=== PATIENT | male | born 1945 | race Caucasian/White ===

== ENCOUNTER 2016-11-14 17:54 | Inpatient (IN) ==
[2016-11-14] MEDS ORDERED: Lidocaine 2% Syringe 100 MG/5 ML IVP ONE (19:20)
[2016-11-14] MEDS ORDERED: Aspirin 81 MG TAB.CHEW PO STA (19:27)
[2016-11-14] MEDS ORDERED: *HR* Heparin 5,000 UNIT/ML VIAL IVP ONE (19:27)
[2016-11-14] MEDS ORDERED: 0.9 % Sodium Chloride 1,000 ML IV SCH (19:30)
[2016-11-14] MEDS ORDERED: Lidocaine Drip 2 GM/500 ML IV.SOLN IVC SCH (19:30)
[2016-11-14] MEDS ORDERED: Heparin 25,000 UNIT/500 ML D5W 25,000 UNIT/500 ML MLS IVC SCH (19:30)
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
[2016-11-14 19:35] LABS: Basophils % 0.3 %; Eosinophils % 0.4 %; Hematocrit 39.5 % (37.5-50.1); Hemoglobin 13.3 g/dL (12.9-16.9); Immature Granulocytes % 0.6 % (0-4); Lymphocytes # 1.1 K/mcL (0.6-4.6); Lymphocytes % 11.2 %; Mean Corpuscular HGB Conc 33.7 g/dL (31.6-35.5); Mean Corpuscular Hemoglobin 30.6 pg (28.0-33.3); Mean Platelet Volume 9.7 fL (9.4-12.4); Monocytes # 0.7 K/mcL (0.0-1.3); Monocytes % 6.8 %; Neutrophils # 7.9 K/mcL (1.6-8.9); Platelet Count 246 K/mcL (140-400); Red Blood Count 4.34 M/mcL (4.19-5.50); Segmented Neutrophils % 80.7 %
[2016-11-14 19:50] LABS: BUN/Creatinine Ratio 25 (6-26); Blood Urea Nitrogen 28 mg/dL (8-26); Calcium 8.6 mg/dL (8.6-10.8); Carbon Dioxide 23 mEq/L (19-29); Chloride 99 mEq/L (98-109); Glucose 107 mg/dL (70-99); Osmolality,Calculated 276 (280-300); Potassium 4.1 mEq/L (3.5-4.5); Sodium 130 mEq/L (136-145); eGFR For African Americans > 60 (> 60); eGFR For Non-African Americans > 60 (> 60)
[2016-11-14 19:53] LABS: Acetaminophen < 1.0 mcg/mL (10-30); Ethanol < 10 mg/dL (0-10); Salicylate < 5.0 mg/dL (15-30)
[2016-11-14] MEDS ORDERED: *HR* Heparin 10,000 UNIT/10 ML VIAL ONE (19:54)
[2016-11-14] MEDS ORDERED: Nitroglycerin 1,000 MCG/10 ML VIAL IV ONE (19:54)
[2016-11-14] MEDS ORDERED: Heparin 1,000 UNITS/500 mL NS 500 ML ONE (19:54)
[2016-11-14] MEDS ORDERED: 0.9 % Sodium Chloride 1,000 ML ONE ×2 (19:54→20:04)
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
--- NOTE | 2016-11-14 20:13 | Pre-Sedation Evaluation ---
Pre-sedation evaluation - Pre-sedation checklist Date of procedure: 11/14/16 Procedure: Cardiac catheterization Recent Vitals: Last Vital Signs Temp 97.7 F 11/14/16 17:55 Pulse 78 11/14/16 19:55 Resp 18 11/14/16 20:05 BP 118/73 11/14/16 20:05 Pulse Ox 98 11/14/16 19:55 H&P (including ROS) documented in medical record: Yes Previous reaction to sedatives/anesthetics: No Dietary Status: unknown Airway Assessment: Patient can open mouth completely, TMJ function normal Dentition: No loose teeth or bridges Possible difficult airway: No ASA Classification *see protocol: CLASS II-Mild systemic disease Plan of Care: Pt appropriate candidate for procedure/moderate/conscious sedation
[2016-11-14 20:18] LABS: Activated Partial Thrombo Time 28.7 Seconds (26.0-36.0); INR 1.3; Prothrombin Time 13.6 Seconds (9.4-12.1)
[2016-11-14] MEDS ORDERED: *HR* Midazolam HCl 2 MG/2 ML VIAL ONE (20:18)
[2016-11-14] MEDS ORDERED: *HR* FentaNYL (PF) 100 MCG/2 ML VIAL ONE (20:19)
--- NOTE | 2016-11-14 20:29 | Emergency Department Note ---
Disposition Clinical Impression: V tach Syncope Qualifiers: Syncope type: unspecified Qualified Code(s): R55 - Syncope and collapse Disposition: Admitted As Inpatient Condition: Serious General Adult HPI - General Chief complaint: ED Syncope Stated complaint: blacked out 2 days ago Time Seen by Provider: 11/14/16 18:09 Source: patient Mode of arrival: ambulatory Limitations: no limitations - History of Present Illness Pain Scale: 0 - Related Data Allergies Allergy/AdvReac Type Severity Reaction Status Date / Time No Known Allergies Allergy Verified 11/14/16 17:55 Constitutional: Denies: fever, chills Cardiovascular: Reports: palpitations. Denies: chest pain Respiratory: Reports: dyspnea Gastrointestinal: Reports: abdominal pain (Occasional abdominal pain). Denies: nausea, vomiting Genitourinary: Denies: dysuria Musculoskeletal: Denies: neck pain Past Medical History - Past Medical History Medical history: Reports: coronary artery disease, hyperlipidemia, hypertension , myocardial infarction, seizures Psychiatric history: Reports: no psych history - Social History Smoking Status: Current every day smoker Smokeless Tobacco Status: No Alcohol use: Reports: none Drug use: Reports: none Physical Exam - General Limitations: no limitations General appearance: alert, in no apparent distress Course Vital Signs Temperature 97.7 F 11/14/16 17:55 Pulse Rate 136 11/14/16 17:55 Respiratory Rate 20 11/14/16 17:55 Blood Pressure 114/75 11/14/16 17:55 O2 Sat by Pulse Oximetry 95 11/14/16 17:55 Temperature 97.7 F 11/14/16 17:55 Pulse Rate 78 11/14/16 19:55 Respiratory Rate 18 11/14/16 20:05 Blood Pressure 118/73 11/14/16 20:05 O2 Sat by Pulse Oximetry 98 11/14/16 19:55 Oxygen Delivery Oxygen Delivery Nasal Cannula Medical Decision Making - Lab Data Result diagrams: 11/14/16 19:24 11/14/16 19:24 Lab Results 11/14/16 11/14/16 11/14/16 Range/Units 19:24 19:24 19:24 WBC 9.8 (4.3-11.1) K/mcL RBC 4.34 (4.19-5.50) M/mcL Hgb 13.3 (12.9-16.9) g/dL Hct 39.5 (37.5-50.1) % MCV 91.0 (83.0-100.0) fL MCH 30.6 (28.0-33.3) pg MCHC 33.7 (31.6-35.5) g/dL RDW 13.0 (11.5-14.5) % Plt Count 246 (140-400) K/mcL MPV 9.7 (9.4-12.4) fL Immature Gran % 0.6 (0-4) % Seg Neutrophils % 80.7 % Lymphocytes % 11.2 % Monocytes % 6.8 % Eosinophils % 0.4 % Basophils % 0.3 % Neutrophils # 7.9 (1.6-8.9) K/mcL Lymphocytes # 1.1 (0.6-4.6) K/mcL Monocytes # 0.7 (0.0-1.3) K/mcL Eosinophils # 0.0 (0.0-0.6) K/mcL Basophils # 0.0 (0.0-0.2) K/mcL PT (9.4-12.1) Seconds INR APTT (26.0-36.0) Seconds Sodium 130 L (136-145) mEq/L Potassium 4.1 (3.5-4.5) mEq/L Chloride 99 (98-109) mEq/L Carbon Dioxide 23 (19-29) mEq/L BUN 28 H (8-26) mg/dL Creatinine 1.13 (0.72-1.25) mg/dL Est GFR ( Amer) > 60 (> 60) Est GFR (Non-Af Amer) > 60 (> 60) BUN/Creatinine Ratio 25 (6-26) Glucose 107 H (70-99) mg/dL Calculated Osmolality 276 L (280-300) Calcium 8.6 (8.6-10.8) mg/dL Troponin I 0.01 (0-0.03) ng/mL Salicylates (15-30) mg/dL Acetaminophen (10-30) mcg/mL Ethyl Alcohol (0-10) mg/dL 11/14/16 11/14/16 Range/Units 19:24 19:24 WBC (4.3-11.1) K/mcL RBC (4.19-5.50) M/mcL Hgb (12.9-16.9) g/dL Hct (37.5-50.1) % MCV (83.0-100.0) fL MCH (28.0-33.3) pg MCHC (31.6-35.5) g/dL RDW (11.5-14.5) % Plt Count (140-400) K/mcL MPV (9.4-12.4) fL Immature Gran % (0-4) % Seg Neutrophils % % Lymphocytes % % Monocytes % % Eosinophils % % Basophils % % Neutrophils # (1.6-8.9) K/mcL Lymphocytes # (0.6-4.6) K/mcL Monocytes # (0.0-1.3) K/mcL Eosinophils # (0.0-0.6) K/mcL Basophils # (0.0-0.2) K/mcL PT 13.6 H (9.4-12.1) Seconds INR 1.3 APTT 28.7 (26.0-36.0) Seconds Sodium (136-145) mEq/L Potassium (3.5-4.5) mEq/L Chloride (98-109) mEq/L Carbon Dioxide (19-29) mEq/L BUN (8-26) mg/dL Creatinine (0.72-1.25) mg/dL Est GFR ( Amer) (> 60) Est GFR (Non-Af Amer) (> 60) BUN/Creatinine Ratio (6-26) Glucose (70-99) mg/dL Calculated Osmolality (280-300) Calcium (8.6-10.8) mg/dL Troponin I (0-0.03) ng/mL Salicylates < 5.0 L (15-30) mg/dL Acetaminophen < 1.0 L (10-30) mcg/mL Ethyl Alcohol < 10 (0-10) mg/dL - EKG Data EKG #1 EKG results narrative: Social EKG was obtained [address] segment changes in leads 23 and aVF with possible J-point elevation however ST segments were not elevated there was also nonspecific changes in V leads with poor R-wave progression. [place] was left intervals were normal ventricular rate was 77 bpm second EKG was obtained at 1903 with findings of patient distress including blacking out EKG findings showed ventricular tachycardia on lead 2. There was K Corton's in V1 and V3 V4 V5 and V6 however this is absent in lead V2. Findings consistent with ventricular tachycardia. Their EKG completed at 191 with spontaneous resolution of ventricular tachycardia after lidocaine administration showed again an EKG changes in II, III, and F aVF with J-point elevation however again nonspecific ST segment changes with left axis and nonspecific changes in the anterior V leads. Final EKG completed at 1915 showed ventricular rate at 83 bpm with again nonspecific EKG changes in II, III , and F aVF with possible J-point elevation however no substantial changes in ST segments or several changes. EKGs were abnormal. nail specialist as well as noninterventional channel worker notified. Lab will be in for emergent ischemic evaluation. Critical Care Time Total Critical Care Time: 35 Attestation: Greater than 35 minutes of critical care time was spent resuscitating this acutely ill male suffering from ventricular tachycardia. Critical care time was excluding billable procedures Attestation Statement - Attestation Attestation: 71-year-old male with a history of CABG, previous coronary artery disease who is otherwise healthy who was working today and had 2 episodes of syncope. He had no chest pain. He has had intermittent epigastric discomfort. He has reportedly had previous abdominal ultrasounds. Today in the emergency department presents without focal neurological deficit however did have episode of syncopal while here in the department. This is associated with significant EKG changes including ventricular tachycardia and hypotension. His blood pressure responded to IV fluids and given findings of ventricular tachycardia I did proceed with IV bolus of lidocaine 100 mg. This was done in effort to preserve possible future EP study. Cardiac biomarkers are not available at this time for evaluation. Electrolytes are pending. He has no chest pain and had complete resolution of syncope with of ventricular tachycardia. He was started on a lidocaine drip. He had no subsequent ectopy. I did emergently contact the noninterventional cardiologists for EKG clarification given the nonspecific EKG changes in II, III, and F aVF. He did not have overt STEMI. He was given heparin, aspirin. I did discuss the case with the on-call interventionalists who agreed that emergent ischemic evaluation was warranted given ongoing ventricular tachycardia. The patient was taken emergently to the catheter lab. He remained stable with no further ectopy.
--- NOTE | 2016-11-14 21:17 | Invasive Diagnostic Lab Proc ---
Name: Dre Smith Date of Study: 11/14/2016 Date: 1945 Ht: 68.9in Medical Record#: [id number] Age: 71 Wt: 174.17lb Gender: Male BSA: 1.95 Order #: [id number] BMI: 25.8 Physicians Procedure Physician: Carlitos Paulino MD Referring MD: Referring MD: Staff Name Position Time In Sites, Caitlin RT (R) Monitor 08:16 PM Caitlin Keller RT (R) Scrub 08:16 PM Odessa Segura RN Counterperson 08:16 PM Oscar Escobar RN Counterperson 08:16 PM Indications Indication vtach Procedures Performed Procedure L HRT ARTERY/VENTRICLE ANGIO Pre-Procedure Checklist Informed consent is complete signed and on chart. H&P is on chart. ID band is on and ID verified with patient. Patient NPO for procedure The procedure was described for the patient and questions were answered. Blood Pressure: 129/85 ECG is on chart. Rhythm: NSR Plan of Care Patient will tolerate the procedure without complications. Adequate level of comfort will be maintained. Hemodynamics will remain stable Patient will recover from procedure without complications. Respiratory function will be maintained. Cardiac rhythm will remain stable. Patient temperature will be maintained. Patient and/or family have verbalized understanding of the procedure. Patient Education Chief Complaint/Reason for Test: Cardiac Cath Developmental Category: Geriatric (65+ years) Developmentally Appropriate for Age: Yes Learning Barriers: None Education Needs: Procedure Education Method: Verbal Information Taught: Cardiac Cath Educational Evaluation: Able to repeat information Intravenous Access Time IV Size Location DC'd Fluid/Drip Rate Units RN 18g 1 1/4" Patent On Arrival Lt Antecubital Lidocaine 2 mg/min Odessa Segura RN 18g 1 1/4" Patent On Arrival Rt Antecubital 0.9NaCl 25 ml/hr Odessa Segura RN Allergies No Known Allergies Vital Signs Time BP (mmHg) HR (bpm) O2 Sat. RR (bpm) LOC 08:20 PM 129 / 85 82 96 % 16 5 = Fully awake and oriented or at pre-proc level 08:16 PM 129 / 85 76 98 % 18 08:21 PM 139 / 87 83 95 % 23 08:26 PM 133 / 83 78 95 % 16 08:31 PM 98 / 60 70 97 % 17 08:34 PM 96 / 52 67 97 % 17 08:36 PM 106 / 68 76 99 % 19 08:41 PM 108 / 66 76 95 % 18 08:46 PM 113 / 64 72 98 % 18 08:51 PM 111 / 69 76 98 % 17 08:56 PM 122 / 66 75 97 % 21 Procedural Medications Time Medication Dose Units Method Given By 08:21 PM Oxygen 2 L/min nasal cannula Oscar Escobar RN 08:24 PM Versed 2 mg Intravenous Odessa eSgura RN 08:24 PM Fentanyl 50 mcg Intravenous Odessa Segura RN 08:30 PM Lidocaine 2% 14 ml Subcutaneous Carlitos Paulino MD ASA Classification: Emergent Procedure: ASA score is assumed Cruz Score Preprocedure Postprocedure Activity 2- Moves 4 extremities sustained head lift Activity 2- Moves 4 extremities sustained head lift Circulation 2- SBP +/= 20 points of pre-anesthetic level Circulation 2- SBP +/= 20 points of pre-anesthetic level Consciousness 2- Awake and alert oriented x 3 Consciousness 2- Awake and alert oriented x 3 O2 Saturation 2- Able to maintain O2 satruation of 92% on room air O2 Saturation 2- Able to maintain O2 satruation of 92% on room air Respiratory 2- Able to deep breathe and cough well Respiratory 2- Able to deep breathe and cough well Total Score 10 Total Score 10 Contrast Agent: Isovue Diagnostic Contrast: 94 ml Total Contrast: 94 ml Fluoro Dose: 448 mGy Activated Clotting Time Time Seconds to Clot 08:57 PM 203 Procedure Log Time Note Enter By 08:01 PM CathStat 08:09 PM Pt arrived to track laborer 2 at 20:09 scoates 08:10 PM Caitlin García RT (R) Position: Monitor Time in: 20:10 scoates 08:10 PM Caitlin Keller RT (R) Position: Scrub Time in: 20:10 scoates 08:10 PM Odessa Segura RN Position: Counterperson Time in: 20:10 scoates 08:10 PM Oscar Escobar RN Position: Counterperson Time in: 20:10 scoates 08:15 PM Recorded ECG: HR=75 Condition=Condition 1 08:15 PM Vitals capture started with the following parameters, Patient=Adult, Interval=5 min, Initial Ztcvbche=870 mmHg, Deflation Rate=5 mmHg, Cuff placed on Left Arm 08:16 PM HR=76 bpm, RCHS=717/85 mmhg, SpO2=98.0 %, Resp=18 B/min 08:20 PM Pressure channel 1 zeroed. 08:21 PM Clinical Presentation: Unstable angina tsites 08:21 PM Patient charges- Angio tray pack, Navilyst 3mm J, Pulse Oximetry and ACIST tubing and transducer tsites 08:21 PM Case Delayed No tsites 08:21 PM Physician arrived 20:21 was here in the reading room waiting for patient prep tsites 08:21 PM HR=83 bpm, LPOO=708/87 mmhg, SpO2=95 %, Resp=23 B/min 08:21 PM Meet and greet completed tsites 08:21 PM Time: 20:21 Oxygen on at 2 L/min per nasal cannula by Oscar Escobar RN tsites 08:24 PM Time: 20:24 Versed 2 mg Intravenous Given by Odessa Segura RN tsites 08:24 PM Time: 20:24 Fentanyl 50 mcg Intravenous Given by Odessa Segura RN tsites 08:26 PM HR=78 bpm, LKTB=254/83 mmhg, SpO2=95 %, Resp=16 B/min 08:28 PM Time out performed according to hospital policy tsites 08:28 PM Procedure start 20:28 tsites 08:30 PM Time: 20:30 14 ml Lidocaine 2% to right groin Subcutaneous Given by Carlitos Paulino MD tsites 08:31 PM Access obtained by percutaneous puncture. 6Fr 10cm Terumo [place] sheath placed in right Femoral artery. [id number] tsites 08:31 PM 5Fr FL 4 catheter inserted over the wire [facility] tsites 08:31 PM 0.035 145cm Navilyst 3mmJ wire [id number] tsites 08:31 PM HR=70 bpm, NIBP=98/60 mmhg, SpO2=97.0 %, Resp=17 B/min 08:32 PM LCA angiography performed in multiple views. tsites 08:32 PM Recorded Pressure: Ao, HR=67, Condition=Condition 1 (Aorta) Ao 87/54/69 08:33 PM NIBP STAT measurement started. 08:34 PM HR=67 bpm, NIBP=96/52 mmhg, SpO2=97 %, Resp=17 B/min 08:35 PM wire reinserted catheter removed tsites 08:35 PM 5Fr FR 4 catheter inserted over the wire DNC tsites 08:36 PM RCA angiography performed in multiple views. tsites 08:36 PM Recorded Pressure: Ao, HR=75, Condition=Condition 1 (Aorta) Ao 103/70/86 08:36 PM HR=76 bpm, XVWN=999/68 mmhg, SpO2=99 %, Resp=19 B/min 08:36 PM SVG to the RPDA angio performed in multiple views. tsites 08:36 PM Recorded Pressure: Ao, HR=76, Condition=Condition 1 (Aorta) Ao 107/73/89 08:39 PM Left WILMA to the LAD angio performed in multiple views. tsites 08:39 PM Recorded Pressure: Ao, HR=76, Condition=Condition 1 (Aorta) Ao 99/67/82 08:40 PM Recorded Pressure: Ao, HR=75, Condition=Condition 1 (Aorta) Ao 95/63/79 08:41 PM wire reinserted catheter removed tsites 08:41 PM 5Fr Pigtail catheter inserted over the wire DNC tsites 08:41 PM HR=76 bpm, LMRN=603/66 mmhg, SpO2=95 %, Resp=18 B/min 08:41 PM Catheter selectively placed in left ventricle tsites 08:42 PM Recorded Pressure: LV, HR=80, Condition=Condition 1 (Left Ventricle) LV 120/12/21 08:42 PM Bolus angiogram of left Ventricle complete: 10 ml/sec for a total of 20 mls tsites 08:42 PM Recorded Pressure: LV, Ao, HR=77, Condition=Condition 1 (Left Ventricle) LV 116/10/19, (Aorta) Ao 112/59/81 08:43 PM wire reinserted catheter removed tsites 08:46 PM HR=72 bpm, WHBA=153/64 mmhg, SpO2=98.0 %, Resp=18 B/min 08:51 PM HR=76 bpm, TTKX=303/69 mmhg, SpO2=98 %, Resp=17 B/min 08:52 PM ACT drawn tsites 08:53 PM Procedure completed at 20:53 tsites 08:53 PM Sign out completed: Radiation Dose 448 mGy Fluoro Time: 3.9 Isovue 370 - 500ml contrast 94 ml given by Carlitos Paulino MD. Complications: NoneCardiac Rehab Consult needed: NoConfirmed administered medications: Yes tsites 08:53 PM Isovue 370 - 500ml,1 Bottle(s) used. tsites 08:53 PM Sheath left in place to be pulled on floor/holding areaV+Pad tsites 08:53 PM Post ECG NSR tsites 08:54 PM At 20:57 the ACT was 203 seconds. tsites 08:54 PM Post Blood Pressure 111/69 tsites 08:54 PM 20:54 Post Pulses Bilateral DP & PT 2+ tsites 08:54 PM Information taught Cardiac Cath tsites 08:54 PM Education needs Procedure, Plan of Care, and Responsibilities of Patient in Care tsites 08:54 PM Learning barriers :None tsites 08:54 PM Education Methods Verbal tsites 08:54 PM Education evaluation Able to repeat information tsites 08:55 PM Site status No bleeding/hematoma - Rt Groin as reported by Caitlin Keller RT (R) at 20:54 tsites 08:55 PM Opsite applied tsites 08:56 PM HR=75 bpm, COMQ=494/66 mmhg, SpO2=97 %, Resp=21 B/min 08:57 PM Lesion found in LMCA. Pre Stenosis: 30 Pre WILIAN Flow: tsites 08:59 PM Lesion found in Proximal RCA. Pre Stenosis: 100 Pre WILIAN Flow: tsites 08:59 PM Lesion found in Proximal LAD. Pre Stenosis: 70 Pre WILIAN Flow: tsites 08:59 PM Lesion found in 1st Diagonal. Pre Stenosis: 70 Pre WILIAN Flow: tsites 09:00 PM Lesion found in Proximal Circumflex. Pre Stenosis: 100 Pre WILIAN Flow: tsites 09:00 PM Left Main Coronary Artery with 30% stenosis tsites 09:00 PM Proximal Left Anterior Descending Coronary Artery with 70% stenosis. If graft is supplying this territory, 0 % stenosis. tsites 09:00 PM Mid/Distal Left Anterior Descending Coronary Artery and diagonal branches with 70% stenosis. If graft is supplying this area, 0 % stenosis tsites 09:00 PM Circumflex, Obtuse Marginal, Left Posterior Descending, and Left Posterolateral Coronary Arteries with 100 % stenosis. If graft is supplying this area, 0 % stenosis tsites 09:01 PM Right Coronary, Right Posterior Descending Arteries with Right Posterolateral and Acute Marginal branches with 100 % stenosis. If graft is supplying this area, 0 % stenosis tsites 09:10 PM Report given to corazon TURCIOS Pt taken to ICU Room #8. 21:10 tsites 09:10 PM Delay to floor No tsites 09:10 PM Patient out of room: 21:10 tsites 09:10 PM Family placed in consult room. tsites Complications Complication None Hemodynamics Pressures Site Systolic/A Wave Diastolic/V Wave Mean AO 87 54 69 AO 103 70 86 AO 107 73 89 AO 99 67 82 AO 95 63 79 LV 120 12 21 LV 116 10 19 AO 112 59 81 Post Procedure Information Blood Pressure: 111/69 mmHg Rhythm: NSR Post procedural instructions were given Closure Device Time Device Success/Fail 11/14/2016 9:11:00 PM Mechanical Compression Site Checks Time Location Status Staff Sheath In? Note 08:54 PM Rt Groin No bleeding/hematoma Caitlin Keller RT (R) Pulses Time Site Pre-Procedure Post-Procedure Note 11/14/2016 8:20:00 PM Bilateral DP & PT 2+ 8:54:00 PM Bilateral DP & PT 2+ Updated by Caitlin García RT (R) on 11/14/2016 9:12:03 PM Caitlin García RT electronically signed on 11/14/2016 9:12:34 PM with status of Final
--- NOTE | 2016-11-14 21:29 | Procedure Note ---
Date of procedure: 11/14/16 Pre-op diagnosis: Symptomatic ventricular tachycardia Post-op diagnosis: same Procedure: Cardiac cath: LM-30% proximal, LAD-70% proximal, 91-70% proximal small caliber vessel, CX-diffusely diseased 100% proximal with left to left and [id number] collaterals, RCA-100% proximal, ELLIS-LAD widely patent, SVG-RPDA widely patent, LVEF 45% with severe inferior basal hypokinesis, 1+ to 2+ MR Plan: 1. Heparin can be discontinued 2. EP evaluation 3. 2-D echo Doppler Anesthesia: IV sedation Surgeon: Carlitos Paulino Estimated blood loss (cc): 20 Pathology: none sent Condition: stable Disposition: ICU
--- NOTE | 2016-11-14 21:46 | Invasive Diagnostic Lab ---
Name: Dre Smith Date of Study: 11/14/2016 Date: 1945 Ht: 175.0 cm /68.9 in Medical Record#: [id number] Age: 71 Wt: 79. kg / 174.17 lb Account/Order#: [id number] Gender: Male BSA: 1.95 Order #: [id number] Fluoro Dose: 448 mGy BMI: 25.8 Procedure Physician: Carlitos Paulino MD Referring MD: Referring MD: Procedures Performed: LEFT HEART CATH Indications: vtach History/Risk Factors: v tach Hypertension Dyslipidemia Current/Recent Smoker Procedure Access obtained in the right Femoral artery by percutaneous puncture Complications: None Contrast: Isovue 94ml Closure Device: Mechanical Compression Hemodynamics: Pressures Site Systolic/ A Wave Diastolic/ V Wave End Diastolic/ Mean HR AO 87 54 69 67 AO 103 70 86 75 AO 107 73 89 76 AO 99 67 82 76 AO 95 63 79 75 LV 120 12 21 80 LV 116 10 19 77 AO 112 59 81 78 LV Ventriculography Ejection Method: LV Gram Ejection Fraction: 45% Wall Motion: WEISS Anterobasal Normal Anterolateral Normal Apical: Normal Inferoapical Normal Inferobasal Severe Hypokinesis Coronary Dominance: Lesion Findings/Interventions * Left Main Coronary Artery There is a 30% stenosis in the LMCA. * Left Anterior Descending The 1st Diagonal is small in size.. There is a 70% stenosis in the Proximal LAD. There is a 70% stenosis in the 1st Diagonal. * Circumflex The Proximal Circumflex has left to left and right to left collaterals. There is a 100% stenosis in the Proximal Circumflex. * Right Coronary Artery There is a 100% stenosis in the Proximal RCA. Additional Findings: Grafts * The saphenous vein graft to the Right PDA is patent. * The left internal mammary graft to the Mid LAD is patent. Updated by RT Manish (R) on 11/14/2016 9:11:42 PM Carlitos Paulino MD
[2016-11-14] MEDS ORDERED: *HR* Atropine Sulfate 1 MG/10 ML SYRINGE ONE (22:14)
[2016-11-15 02:29] LABS: Bilirubin,Urine Negative (Negative); Blood,Urine Negative (Negative); Clarity,Urine Clear (Clear); Color,Urine Yellow (Yellow); Glucose,Urine (UA) Normal (Normal); Ketones,Urine Negative (Negative); Leukocyte Esterase,Urine Negative (Negative); Nitrite,Urine Negative (Negative); Protein,Urine Negative (Neg-Trace); Specific Gravity,Urine 1.022 (1.010-1.025); Urobilinogen,Urine Normal (Normal)
[2016-11-15 02:40] LABS: Amphetamine Screen,Urine Negative ng/mL (Cutoff=1000); Barbiturate Screen,Urine Negative ng/mL (Cutoff=200); Benzodiazepines Screen,Urine Positive ng/mL (Cutoff=200); Cannabinoid Screen,Urine Negative ng/mL (Cutoff = 50); Cocaine Screen,Urine Negative ng/mL (Cutoff= 300); Opiate Screen,Urine Negative ng/mL (Cutoff=300); Phencyclidine Screen,Urine Negative ng/mL (Cutoff=25)
[2016-11-15 03:54] LABS: BUN/Creatinine Ratio 23 (6-26); Blood Urea Nitrogen 23 mg/dL (8-26); Calcium 8.3 mg/dL (8.6-10.8); Carbon Dioxide 17 mEq/L (19-29); Chloride 102 mEq/L (98-109); Glucose 80 mg/dL (70-99); Osmolality,Calculated 267 (280-300); Potassium 4.4 mEq/L (3.5-4.5); Sodium 127 mEq/L (136-145); eGFR For African Americans > 60 (> 60); eGFR For Non-African Americans > 60 (> 60)
--- NOTE | 2016-11-15 08:44 | Pulmonology Consult Note ---
<Sohail Trotter W - Last Filed: 11/15/16 10:32> Date of Encounter: 11/15/16 Medications and Allergies Aspirin [Ecotrin] 325 mg PO DAILY 11/14/16 [History] Lisinopril/Hydrochlorothiazide [Zestoretic 20-12.5 mg Tablet] 2 tab PO DAILY [History] Metoprolol Tartrate [Lopressor] 25 mg PO BID 11/14/16 [History] Simvastatin [Zocor] 40 mg PO HS 11/14/16 [History] Allergies No Known Allergies Allergy (Verified 11/14/16 17:55) All Systems: A 10-system review of systems was performed and is negative for pertinent findings except as documented above in the HPI. Physical Examination Vital Signs: Vital Signs, Last 4 Hours Temp Pulse Resp BP Pulse Ox 11/15/16 09:00 75 18 145/78 93 11/15/16 08:08 97.9 F 11/15/16 08:00 86 20 162/96 93 11/15/16 07:30 86 11/15/16 07:00 63 18 121/67 92 Results - Laboratory Findings CBC and BMP: 11/15/16 08:01 11/15/16 03:02 PT/INR, D-dimer PT 13.6 Seconds (9.4-12.1) H 11/14/16 19:24 Abnormal lab findings: Abnormal lab results PT 13.6 Seconds (9.4-12.1) H 11/14/16 19:24 Sodium 127 mEq/L (136-145) L 11/15/16 03:02 Carbon Dioxide 17 mEq/L (19-29) L 11/15/16 03:02 POC Glucose 112 (58-89) H 11/14/16 21:18 Calculated Osmolality 267 (280-300) L 11/15/16 03:02 Calcium 8.3 mg/dL (8.6-10.8) L 11/15/16 03:02 Salicylates < 5.0 mg/dL (15-30) L 11/14/16 19:24 Acetaminophen < 1.0 mcg/mL (10-30) L 11/14/16 19:24 U Benzodiazepines Scrn Positive ng/mL (Onyxgg=491) H 11/15/16 02:00 - Clinical Findings Intake & Output: Intake & Output 11/14/16 11/15/16 11/15/16 23:59 07:59 15:59 Intake Total 1220 / 1220 300 / 300 420 / 420 Output Total 700 / 700 1075 / 1075 Balance 520 / 520 -775 / -775 420 / 420 Weight 78.2 kg Consult Discharge Plan - Plan Referrals: NONE,PCP [Non-Partnered Physician] - - Attending Attestation I examined this patient and my medical decision-making was reviewed with the Resident Physician. I agree with the documented findings, disposition and treatment plan as described except to the extent set forth below. Patient seen and examined at bedside Labs, radiology, chart personally reviewed. All lines examined without evidence of infection or hemorrhage Management was reviewed during multidisciplinary critical care rounds. Neuropsych: Awake and alert following no commands he has a very abrasive and abusive personality Pulm: Chronic tobacco abuse suspected underlying COPD saturating well on room air tobacco cessation counseling was given plan for a short acting bronchodilator as needed Cards: Acute cardiogenic syncope likely secondary to ventricular arrhythmia patient has been evaluated by cardiology service status post left heart catheterization without intervention he remained on lidocaine infusion which has been discontinued he will be started on amiodarone today per cardiology recommendations plan for permanent pacemaker when able. 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 Patient was on lidocaine drip, but the marketing forecaster discontinued it and plan to transfer him. Patient has been evaluated by cardiology status post left heart catheterization without intervention. Per cardiology, the patient will be started on amiodarone tomorrow after washout period. They noted that if there's any significant ectopy, start amiodarone drip. The patient will be transferred. (2) Syncope Current Visit: Yes Status: Acute Patient has syncope most likely secondary to the ventricular tachycardia. Patient is being evaluated by cardiology services. Qualifiers: Syncope type: unspecified Qualified Code(s): R55 - Syncope and collapse (3) CAD (coronary artery disease) Current Visit: Yes Status: Acute Patient has a history of CAD. Her cardiology services, containing aspirin, beta jennifer, and Statin. Continue to monitor the patient closely. Qualifiers: Coronary Disease-Associated Artery/Lesion type: bypass graft [place] vs. transplanted heart: [place] heart Associated angina: without angina Qualified Code(s): I25.810 - Atherosclerosis of coronary artery bypass graft(s) without angina pectoris History of Present Illness Consult date: 11/15/16 Chief complaint: V tach History of present illness: Mr. Smith is an unpleasant 71-year-old male with a history of CAD status post CABG in 2000. He presented to the emergency department with syncope. Patient states that he had 2 episodes of syncope since this past Thursday. One syncope episode occurred while he was driving and believes he lost consciousness. He denies any nausea or vomiting. He states that during the episode of syncope, he had palpitations and shortness of breath. On arrival to the ED, EKG indicates V tach with a pulse. The patient was given a lidocain bolus and Vtach was resolved. He was started on lidocaine drip. laborer wharf team involved and STEMI alert was called. The patient was admitted to ICU to be monitored. Currently, the patient denies any chest pain, palpitations, shortness of breath, abdominal pain, nausea and vomiting, headaches, changes in vision, or dizziness. Past Med Surg Social Fam HX - Past Medical History Medical history: coronary artery disease, hyperlipidemia, hypertension, myocardial infarction, seizures Psychiatric history: no psych history - Social History Smoking Status: Current every day smoker Smokeless Tobacco Status: No Alcohol use: none Drug use: none All Systems: A 10-system review of systems was performed and is negative for pertinent findings except as documented above in the HPI. - Constitutional Constitutional: as per HPI - EENT Eyes: as per HPI, no loss of vision Nose, mouth and throat: no dizziness, no headache(s) - Cardiovascular Cardiovascular: as per HPI, no chest pain, no dyspnea, no lightheadedness, no palpitations, no syncope - Respiratory Respiratory: as per HPI, no cough, no dyspnea - Gastrointestinal Gastrointestinal: as per HPI, no abdominal pain, no nausea, no vomiting - Neurological Neurological: as per HPI, no confusion, no dizziness, no focal weakness, no headache(s), no loss of vision, no numbness, no syncope, no other visual disturbances Physical Examination Vital Signs: Vital Signs, Last 4 Hours Temp Pulse Resp BP Pulse Ox 11/15/16 08:08 97.9 F 11/15/16 08:00 86 20 162/96 93 11/15/16 07:30 86 11/15/16 07:00 63 18 121/67 92 11/15/16 06:00 81 20 140/77 93 11/15/16 05:04 64 19 123/69 93 General appearance: no acute distress, alert, other (Patient is very unpleasant. Alert and oriented. Follows commands.) Eyes: nonicteric ENT: oropharynx moist Neck: supple, no lymphadenopathy, no JVD Effort: normal Inspection: normal Auscultation: bilateral: clear Cardiovascular: regular rate and rhythm Gastrointestinal: normoactive bowel sounds, soft, non-tender, non-distended Integumentary: normal Extremities: no cyanosis, no edema, no clubbing, pulses normal Musculoskeletal: no deformities normal mental status Results - Laboratory Findings CBC and BMP: 11/15/16 08:01 11/15/16 03:02 PT/INR, D-dimer PT 13.6 Seconds (9.4-12.1) H 11/14/16 19:24 Abnormal lab findings: Abnormal lab results PT 13.6 Seconds (9.4-12.1) H 11/14/16 19:24 Sodium 127 mEq/L (136-145) L 11/15/16 03:02 Carbon Dioxide 17 mEq/L (19-29) L 11/15/16 03:02 POC Glucose 112 (58-89) H 11/14/16 21:18 Calculated Osmolality 267 (280-300) L 11/15/16 03:02 Calcium 8.3 mg/dL (8.6-10.8) L 11/15/16 03:02 Salicylates < 5.0 mg/dL (15-30) L 11/14/16 19:24 Acetaminophen < 1.0 mcg/mL (10-30) L 11/14/16 19:24 U Benzodiazepines Scrn Positive ng/mL (Ptafti=071) H 11/15/16 02:00 - Clinical Findings Intake & Output: Intake & Output 11/14/16 11/15/16 11/15/16 23:59 07:59 15:59 Intake Total 1220 / 1220 300 / 300 Output Total 700 / 700 1075 / 1075 Balance 520 / 520 -775 / -775 Weight 78.2 kg
[2016-11-15 08:47] LABS: Basophils % 0.4 %; Eosinophils # 0.1 K/mcL (0.0-0.6); Eosinophils % 0.7 %; Hematocrit 39.4 % (37.5-50.1); Hemoglobin 13.5 g/dL (12.9-16.9); Immature Granulocytes % 0.4 % (0-4); Immature Platelets 4.2 % (1.1-6.1); Lymphocytes # 1.5 K/mcL (0.6-4.6); Lymphocytes % 13.6 %; Mean Corpuscular HGB Conc 34.3 g/dL (31.6-35.5); Mean Platelet Volume 10.3 fL (9.4-12.4); Monocytes # 1.3 K/mcL (0.0-1.3); Monocytes % 12.4 %; Neutrophils # 7.8 K/mcL (1.6-8.9); Platelet Count 230 K/mcL (140-400); Red Blood Count 4.36 M/mcL (4.19-5.50); Red Cell Distribution Width 12.9 % (11.5-14.5); Segmented Neutrophils % 72.5 %
[2016-11-15 08:49] LABS: Mean Corpuscular Volume 90.4 fL (83.0-100.0)
[2016-11-15 09:02] LABS: Magnesium 2.2 mg/dL (1.6-2.6)
[2016-11-15] MEDS: Aspirin Enteric Coated 325 MG Tablet PO SCH ×3 (09:25→11:34)
--- NOTE | 2016-11-15 09:54 | Cardiology Progress Note ---
Date of Encounter: 11/15/16 Time of Encounter: 10:00 Assessment and Plan (1) V tach Current Visit: Yes Status: Acute No targets for revascularization on LHC. Discussed ICD with him but he declines understanding risk of . Will increase beta jennifer, and dc other hypertensives. DC lidocaine, allow for washout period with plan for amiodarone tomorrow. If any significant ectopy, start amiodarone drip. TTE. EP consultation ordered for Thursday- not available on s/afterhours. The assessment and plan as outlined above was discussed with the patient and/or family members who expressed understanding and agreement. All questions were answered. (2) Syncope Current Visit: Yes Status: Acute 2/2 VT The assessment and plan as outlined above was discussed with the patient and/or family members who expressed understanding and agreement. All questions were answered. Qualifiers: Syncope type: unspecified Qualified Code(s): R55 - Syncope and collapse (3) CAD (coronary artery disease) Current Visit: Yes Status: Acute s/p lhc, stable coronary disease. no targets for intervention. Continue aspirin, BB, and statin. Qualifiers: Coronary Disease-Associated Artery/Lesion type: bypass graft [place] vs. transplanted heart: [place] heart Associated angina: without angina Qualified Code(s): I25.810 - Atherosclerosis of coronary artery bypass graft(s) without angina pectoris Discussion w patient/family: The assessment and plan as outlined above was discussed with the patient and/or family members who expressed understanding and agreement. All questions were answered. Thank you for involving us in the care of your patient. Please call with any questions. Subjective Principal diagnosis: ventricular tachycardia Interval history: Patient did well overnight without any chest/jaw/arm discomfort or significant ventricular ectopy Objective Vital Signs, Last 4 Hours Temp Pulse Resp BP Pulse Ox 11/15/16 09:00 75 18 145/78 93 11/15/16 08:08 97.9 F 11/15/16 08:00 86 20 162/96 93 11/15/16 07:30 86 11/15/16 07:00 63 18 121/67 92 11/15/16 06:00 81 20 140/77 93 General: Conversant HEENT: Atraumatic Neck: No JVD Cardiac: Reg Rate and Rhythm Lungs: Normal Breath Sounds Neuro: Alert and responsive Abdomen: Soft Skin: No rashes noted on visualized skin Musculoskeletal: No Chest Wall Tenderness Extremities: No Edema Results 11/15/16 08:01 11/15/16 03:02 Lab Results 11/15/16 11/15/16 03:02 08:01 WBC 10.7 Hgb 13.5 Hct 39.4 Plt Count 230 Sodium 127 L Potassium 4.4 Chloride 102 Carbon Dioxide 17 L BUN 23 Creatinine 1.00 Glucose 80 Calcium 8.3 L Magnesium 2.2 Consult Discharge Plan - Plan Referrals: NONE,PCP [Non-Partnered Physician] -
[2016-11-15] MEDS ORDERED: 0.9 % Sodium Chloride 1,000 ML IV SCH (11:45)
[2016-11-15] MEDS ORDERED: Amiodarone Premix 150 MG/100 ML BAG IVPB PRN (11:45)
[2016-11-15] MEDS ORDERED: Amiodarone Premix 360 MG/200 ML BAG IVC PRN (16:49)
[2016-11-16 05:38] VITALS: BP 140/69
--- NOTE | 2016-11-16 08:17 | Event Note ---
Date of Encounter: 11/16/16 Time of Encounter: 08:15 - Cardiology Event Note Paged by nurse that patient declared that he was leaving AMA at 0830. He is aware he went into cardiac arrest and was fortunate not to . I recommended defibrillator for the patient but he declined yesterday. Plan was to increase beta jennifer and allow a day of washout from his lidocaine to start amiodarone load. Per nursing, he is aware his insurance may not cover any of his medical care. Nurse obtained his pharmacy - [facility] - to send in prescription for amiodarone and increased metoprolol for 1 month until he follows up. I arrived at 0810 but patient had already removed his IV, signed AMA paperwork, and left.
[2016-11-16] MEDS ORDERED: Aspirin Enteric Coated 325 MG Tablet PO SCH (09:00)
--- NOTE | 2016-11-16 18:11 | Electrocardiograph Report ---
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
--- NOTE | 2016-11-16 18:35 | Electrocardiograph Report ---
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
--- NOTE | 2016-11-16 18:36 | Electrocardiograph Report ---
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
--- NOTE | 2016-11-16 18:37 | Electrocardiograph Report ---
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
== END 2016-11-16 08:08 | disposition home or self-care (01) | DRG 287 ==
LOC: EMEROO 17:54 → ICNU 19:31 → 2NNU 11-15 13:15
PROVIDERS: ADMIT Internal Medicine Interventional Cardiology; ATTEND Internal Medicine Interventional Cardiology